=== PATIENT | female | born 1970 | race Caucasian/White ===

== ENCOUNTER 2016-06-22 23:30 | Emergency (ER) | payer OTHER ==
[~2016-06-22] VITALS: Ht 167.6 cm; Wt 70.3 kg
[2016-06-22] MEDS ORDERED: NKM (23:46)
[2016-06-22 23:52] VITALS: BP 121/81
[2016-06-23] MEDS ORDERED: Albuterol ud Inhalation HHN ONE (00:15)
--- NOTE | 2016-06-23 00:16 | Emergency Room Report ---
History of Present Illness General Chief Complaint: Dyspnea/Respdistress Source: Patient Present Illness HPI 45 YO F with progressive chest tightness, SOB, wheezing tonight. Went to PMD earlier for 4 days sore throat, rhinorrhea, non productive cough. Smokes MJ occasionally. Denies history of asthma, COPD, CHF, other med problems. Was given Tessalon pearles and Zpack, took first dose today. Allergies: Uncoded Allergies: contrast dye (Allergy, Unknown, 06/22/16) opiates (Allergy, Unknown, 06/22/16) Patient History Past Medical History: none Past Surgical History: none Pertinent Family History: none Social History: Reports: drug use Now: No Immunizations: UTD Reviewed Nursing Documentation: PMH: Agreed, PSxH: Agreed Nursing Documentation-PMH Hx Gastrointestinal Problems: Yes - left nephrectomy ,Jan 2016 Review of Systems All Other Systems: negative except mentioned in HPI Physical Exam Vital Signs Date Time Temp Pulse Resp B/P Pulse Ox O2 Delivery O2 Flow Rate FiO2 06/22/16 23:37 97.5 81 18 121/81 96 Room Air Sp02 EP Interpretation: reviewed, normal General Appearance: normal inspection, well appearing, alert, GCS 15, non-toxic , mild distress Head: normocephalic, atraumatic Eyes: bilateral eye EOMI, bilateral eye PERRL ENT: normal ENT inspection, hearing grossly normal, normal voice Neck: normal inspection, full range of motion, supple, no bony tend Respiratory: normal inspection, no respiratory distress, no retraction, no accessory muscle use, speaking full sentences, wheezing Cardiovascular #1: regular rate, rhythm, no edema Gastrointestinal: normal inspection, normal bowel sounds, non tender, soft, no guarding, no hernia Genitourinary: no CVA tenderness Musculoskeletal: normal inspection, back normal, normal range of motion, Ana' s Sign negative Neurologic: normal inspection, alert, oriented x3, responsive, contour sander III-XII nml as tested, motor strength/tone normal, speech normal Psychiatric: normal inspection Skin: normal inspection Lymphatic: normal inspection Medical Decision Making Diagnostic Impression: Primary Impression: Acute bronchitis Qualified Codes: J20.9 - Acute bronchitis, unspecified Additional Impression: URI (upper respiratory infection) Qualified Codes: J06.9 - Acute upper respiratory infection, unspecified; B97.89 - Other viral agents as the cause of diseases classified elsewhere ER Course 45 YO F with URI symptoms. VSS. Afebrile Wheezing throught precordium but not tachypnic, tachycardic or hypoxic No obvious source of bacterial infection in oropharynx, ears, lungs, skin, abdomen on exam Well appearing CXR negative for PNA on ED review Improved with albuterol X2 here Advised continued Zpack given by PMD and ceciliadolores haineschetan Will Rx Albuterol inhaler and T#3 as needed for pain PMD followup DC home Understands to return for worsening symptoms - Use albuterol and T#3 as needed for cough - Follow up with your primary care doctor in 2-3 days Chest X-Ray Diagnostic Results EP Interpretation: Yes Findings: no consolidation, no effusion, no pneumothorax, no acute cardiopulmonary disease Number of Views: 1 Last Vital Signs Date Time Temp Pulse Resp B/P Pulse Ox O2 Delivery O2 Flow Rate FiO2 06/22/16 23:53 81 18 Room Air 06/22/16 23:52 97.5 121/81 96 Status: improved Disposition: HOME, SELF-CARE Scripts Acetaminophen With Codeine (T#3) (TYLENOL #3 TAB*) Y Tab 1 TAB ORAL Q8H Y for For Cough, #20 TAB Prov: TAMEKA HERRON M.D. 06/23/16 Albuterol Sulfate (VENTOLIN HFA) 18 Gm Hfa.aer.ad 2 PUFFS INH EVERY 6 HOURS, #18 GM 0 Refills Prov: TAMEKA HERRON M.D. 06/23/16 TAMEKA HERRON M.D. Jun 23, 2016 00:16
[2016-06-23] MEDS ORDERED: ACETAMINOPHEN-1 EAC1 ORAL (00:18)
[2016-06-23] MEDS ORDERED: VENTOLIN HFA18 GM INH (00:18)
[2016-06-23 00:50] VITALS: BP 128/83
[2016-06-23 00:51] VITALS: BP 128/83
--- NOTE | 2016-06-23 10:56 | Diagnostic Imaging Report ---
Indication: SOB Technique: One view of the chest Comparison: none Findings: Lungs and pleural spaces are clear. Heart size is normal. Impression: No acute process
== END 2016-06-23 00:53 | disposition home or self-care (01) ==
LOC: EMR 23:59
DX: J20.9 Acute bronchitis, unspecified (principal); J06.9 Acute upper respiratory infection, unspecified; Z88.8 Allergy status to other drugs, medicaments and biological substances; Z91.041 Radiographic dye allergy status
CPT/HCPCS: 71010; 94640; 94664; 99284

== ENCOUNTER 2016-07-20 06:37 | Emergency (ER) | payer OTHER ==
[~2016-07-20] VITALS: Ht 167.6 cm; Wt 70.3 kg
[~2016-07-20 06:37] MED LIST: ACETAMINOPHEN-1 EAC1 ORAL; NKM; VENTOLIN HFA18 GM INH
[2016-07-20 06:45] VITALS: BP 120/78
[2016-07-20] MEDS: PredniSONE 20mg tab ORAL ONE ×2 (06:53→06:56)
[2016-07-20] MEDS ORDERED: Albuterol ud Inhalation HHN ONE (07:00)
[2016-07-20] MEDS ORDERED: VENTOLIN HFA18 GM INH (07:05)
[2016-07-20] MEDS ORDERED: PREDNISONE20 MG ORAL (07:16)
--- NOTE | 2016-07-20 07:30 | Emergency Room Report ---
History of Present Illness General Chief Complaint: Dyspnea/Respdistress Source: Patient Present Illness HPI 45 YOF with known mild asthma non-smoker p/w chest tightness since last night after arriving back in [place]. States "the rain and change of weather" caused mild exacerbation. Accidentally lost albuterol inhaler on the plane. Denies SOB, fever/chills, cough, URI symptoms. Allergies: Uncoded Allergies: contrast dye (Allergy, Unknown, 06/22/16) opiates (Allergy, Unknown, 06/22/16) Patient History Past Medical History: asthma Past Surgical History: none Pertinent Family History: none Social History: Denies: alcohol use, drug use, smoking Last Menstrual Period: "last month" Now: No Immunizations: UTD Reviewed Nursing Documentation: PMH: Agreed, PSxH: Agreed Nursing Documentation-PMH Past Medical History: No History, Except For Hx Gastrointestinal Problems: Yes - left nephrectomy ,Jan 2016 Review of Systems All Other Systems: negative except mentioned in HPI Physical Exam Vital Signs Date Time Temp Pulse Resp B/P Pulse Ox O2 Delivery O2 Flow Rate FiO2 07/20/16 06:41 97.3 84 22 121/77 96 Room Air 07/20/16 06:55 21 Sp02 EP Interpretation: reviewed, normal General Appearance: normal inspection, well appearing, no apparent distress, alert, GCS 15, non-toxic Head: normocephalic, atraumatic Eyes: bilateral eye EOMI, bilateral eye PERRL ENT: normal ENT inspection, hearing grossly normal, normal voice Neck: normal inspection, full range of motion, supple, no bony tend Respiratory: normal inspection, lungs clear, normal breath sounds, no respiratory distress, no retraction, no accessory muscle use, speaking full sentences, wheezing Cardiovascular #1: regular rate, rhythm, no edema Gastrointestinal: normal inspection, normal bowel sounds, non tender, soft, no guarding, no hernia Genitourinary: no CVA tenderness Musculoskeletal: normal inspection, back normal, normal range of motion, Ana' s Sign negative Neurologic: normal inspection, alert, oriented x3, responsive, marketing manager III-XII nml as tested, motor strength/tone normal, speech normal Psychiatric: normal inspection, judgement/insight normal, mood/affect normal Skin: normal inspection, normal color, no rash Lymphatic: normal inspection Medical Decision Making Diagnostic Impression: Primary Impression: Asthma Qualified Codes: J45.21 - Mild intermittent asthma with (acute) exacerbation ER Course 45 YOF with mild asthma exacerbation. VSS. Afebrile. Mild wheezing resolved after 1 albuterol Refused prednisone here Lungs CTAB on serial exam Not hypoxic, tachypnic. Low suspicion for PNA Rx albuterol and short-course prednisone DC with PMD followup PRN Last Vital Signs Date Time Temp Pulse Resp B/P Pulse Ox O2 Delivery O2 Flow Rate FiO2 07/20/16 07:07 85 16 99 Room Air 21 07/20/16 06:45 97.3 120/78 Status: improved Disposition: HOME, SELF-CARE Condition: Improved Scripts Prednisone* (PREDNISONE*) 20 Mg Tablet 20 MG ORAL BID for 3 Days, #6 TAB Prov: TAMEKA HERRON M.D. 07/20/16 Albuterol Sulfate (VENTOLIN HFA) 18 Gm Hfa.aer.ad 2 PUFFS INH EVERY 6 HOURS for cough, congestion, #18 GM 0 Refills Prov: TAMEKA HERRON M.D. 07/20/16 Referrals: NOT CHOSEN IPA/,REFERRING (PCP) Patient Instructions: Asthma, Adult, [id number] TAMEKA HERRON M.D. Jul 20, 2016 07:30
[2016-07-20 07:39] VITALS: BP 120/78
== END 2016-07-20 07:39 | disposition home or self-care (01) ==
LOC: EMR 07:21
DX: J45.901 Unspecified asthma with (acute) exacerbation (principal)
CPT/HCPCS: 94640; 94664; 99284

== ENCOUNTER 2017-02-18 09:31 | Emergency (ER) | payer OTHER ==
[~2017-02-18] VITALS: Ht 167.6 cm; Wt 77.1 kg
[~2017-02-18 09:31] MED LIST changes: +PREDNISONE20 MG ORAL
[2017-02-18 09:38] VITALS: BP 117/74
[2017-02-18] MEDS ORDERED: Solu-MEDROL 125mg Inj IM ONE (09:45)
[2017-02-18] MEDS ORDERED: Tetracaine 0.5% Opth Soln RIGHT EYE ONE (09:45)
--- NOTE | 2017-02-18 09:46 | Emergency Room Report ---
History of Present Illness General Chief Complaint: Eye Problems Source: Patient Present Illness HPI Patient woke up this morning she has some minimal irritation to her right eye And after scratching the area She felt increased irritation Patient noticed some increased swelling had taken a Benadryl and presents for further eval patient states that she has cats and is sometimes mildly allergic but nothing like this has happened Denies any visual changes Denies any actual pain to the she is increased erythema around eye and increased tearing Denies any contact use Denies any trauma Denies any medication Allergies: Uncoded Allergies: contrast dye (Allergy, Unknown, 06/22/16) opiates (Allergy, Unknown, 06/22/16) Patient History Past Medical History: see triage record Pertinent Family History: none Reviewed Nursing Documentation: PMH: Agreed, PSxH: Agreed Nursing Documentation-PMH Hx Gastrointestinal Problems: Yes - left nephrectomy ,Jan 2016 Review of Systems All Other Systems: negative except mentioned in HPI Physical Exam Vital Signs Date Time Temp Pulse Resp B/P (MAP) Pulse Ox O2 Delivery O2 Flow Rate FiO2 02/18/17 09:34 97.3 84 20 117/74 99 Room Air Sp02 EP Interpretation: reviewed, normal General Appearance: well appearing, no apparent distress Head: normocephalic, atraumatic Eyes: right eye other - There is some erythema involving both upper and lower eyelid, the right eye itself appears mildly edematous, pupils reactive appropriately, no conjunctival erythema extraocular motor intact, stain does not reveal any lacerations or cuts, ENT: normal pharynx, no angioedema Neck: supple Respiratory: lungs clear Cardiovascular #1: regular rate, rhythm Musculoskeletal: normal inspection Neurologic: alert, oriented x3, responsive Skin: other - as above Lymphatic: no adenopathy Medical Decision Making Diagnostic Impression: Primary Impression: Allergic reaction Additional Impression: Allergic conjunctivitis ER Course Given the patient's history and presentation She presents be having a reaction Appears allergic in nature No obvious infectious pathology No other new medications the source is unclear Patient was treated symptomatically Has done better and at this time stable for followup closely if there is no improvement in the next day patient requires close ophthalmology followup Last Vital Signs Date Time Temp Pulse Resp B/P (MAP) Pulse Ox O2 Delivery O2 Flow Rate FiO2 02/18/17 09:34 97.3 84 20 117/74 99 Room Air Status: improved Disposition: HOME, SELF-CARE Condition: Improved Scripts Diphenhydramine Hcl* (BENADRYL*) 25 Mg Capsule 25 MG ORAL Q8HR Y for Itching for 7 Days, CAP Prov: NICKI HERNANDEZ D.O. 02/18/17 Ranitidine Hcl* (ZANTAC*) 150 Mg Tablet 150 MG ORAL TWICE A DAY, #30 TAB Prov: NICKI HERNANDEZ D.O. 02/18/17 Prednisone* (PREDNISONE*) 20 Mg Tablet 20 MG ORAL BID, #8 TAB Prov: NICKI HERNANDEZ D.O. 02/18/17 Gentamicin/Prednisol Ac (PRED-G 1% EYE DROPS) 5 Ml Drops.susp 2 DROP OP BID for 5 Days, ML Prov: NICKI HERNANDEZ D.O. 02/18/17 Additional Instructions: Patient is provided with the discharge instructions notified to follow up with primary doctor in the next 2-3 days otherwise return to the er with any worsening symptoms. Please note that this report is being documented using DRAGON technology. This can lead to erroneous entry secondary to incorrect interpretation by the dictating instrument. NICKI HERNANDEZ D.O. Feb 18, 2017 09:46
[2017-02-18] MEDS ORDERED: PREDNISONE20 MG ORAL (10:27)
[2017-02-18] MEDS ORDERED: RANITIDINE HCL150 MG ORAL (10:27)
[2017-02-18] MEDS ORDERED: BENADRYL25 MG ORAL (10:27)
[2017-02-18] MEDS ORDERED: PRED-G 1% EYE DR5 ML OP (10:27)
[2017-02-18 10:33] VITALS: BP 117/74
== END 2017-02-18 10:33 | disposition home or self-care (01) ==
LOC: EMR 10:00
DX: T78.40XA Allergy, unspecified, initial encounter (principal); X58.XXXA Exposure to other specified factors, initial encounter; H10.11 Acute atopic conjunctivitis, right eye; Z88.5 Allergy status to narcotic agent; Z91.041 Radiographic dye allergy status
CPT/HCPCS: 96372; 99284; J2930

== ENCOUNTER 2020-04-17 03:50 | Inpatient (IN) | payer BC, OTHER ==
[~2020-04-17] VITALS: Ht 165.1 cm; Wt 89.8 kg
[2020-04-17] VITALS (14 sets, daily range): BP systolic 99–129; BP diastolic 57–75
[~2020-04-17 03:50] MED LIST changes: +BENADRYL25 MG ORAL; +PRED-G 1% EYE DR5 ML OP; +RANITIDINE HCL150 MG ORAL
--- NOTE | 2020-04-17 04:11 | Emergency Room Report ---
History of Present Illness General Chief Complaint: Abdominal Pain Source: Patient (Teddy Skinner MD) Present Illness HPI Disclaimer: Please note that this report is being documented using DRAGON technology. This can lead to erroneous entry secondary to incorrect interpr etation by the dictating instrument. HPI: 49-year-old female with history of nephrectomy presents for evaluation of abdominal pain. Patient awoke with abdominal pain around the umbilicus earlier today notes worsening lower abdominal distention and pressure and pain. Started vomiting approximately an hour ago. Had a bowel movement this morning but now passing minimal gas. Reports nausea. Prior nephrectomy as she is an organ donor. States she had a problem with scar tissue in the abdomen in the past. Denies fever or chills. Denies eating any new foods. Denies alcohol or drug use. Denies flank pain. No exacerbating or relieving factors. 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 COVID-19 Screening: Negative COVID-19 COVID-19 Testing Source: [facility] (Teddy Skinner MD) Patient History Last Menstrual Period: n/a (Teddy Skinner MD) Nursing Documentation-PMH Past Medical History: No History, Except For Hx Gastrointestinal Problems: Yes - left nephrectomy ,Jan 2016 (Teddy Skinner MD) Review of Systems All Other Systems: negative except mentioned in HPI (Teddy Skinner MD) Physical Exam Vital Signs Date Time Temp Pulse Resp B/P (MAP) Pulse Ox O2 Delivery O2 Flow Rate FiO2 04/17/20 03:56 99.1 69 18 131/65 (87) 95 Room Air General: Awake and alert, appears uncomfortable. HEENT: NC/AT. EOMI. Cardiovascular: RRR. S1 and S2 normal. No murmur appreciated Resp: Normal work of breathing. No cough, wheezing or crackles appreciated Abdomen: Abdomen is soft. Obese abdomen. Lower abdominal distention. Tender around the umbilicus. No guarding. No tenderness in the right or left lower quadrants. No significant tenderness in the upper quadrants. Skin: Intact. No abrasions, laceration or rash over the exposed skin MSK: Normal tone and bulk. Moving all extremities. No obvious deformity. Neuro: Awake and alert. Mentating appropriately. (Teddy Skinner MD) Medical Decision Making Diagnostic Impression: Primary Impression: Abdominal pain Additional Impression: Appendicitis ER Course 49-year female presents for abdominal pain. Concern for obstruction, volvulus, gastritis, gastroenteritis, pancreatitis, cholecystitis, appendicitis, UTI, pyelonephritis among others. X-ray shows a nonspecific bowel gas pattern no obvious bowel obstruction or volvulus. There is a moderate stool burden consistent with constipation. Patient has had problems with constipation in the past and she was given Dulcolax in the ED. Labs show mild white count 13.8. Chemistry unremarkable. Lipase within normal limits. Continues to complain of abdominal pain. CT is pending. Patient signed out to oncoming provider. Laboratory Tests Test 04/17/20 04:15 04/17/20 06:30 04/17/20 07:40 04/18/20 05:05 White Blood Count 13.8 K/UL (4.8-10.8) H 9.5 K/UL (4.8-10.8) Red Blood Count 4.09 M/UL (4.20-5.40) L 3.59 M/UL (4.20-5.40) L Hemoglobin 13.0 G/DL (12.0-16.0) 11.1 G/DL (12.0-16.0) L Hematocrit 34.2 % (37.0-47.0) L 31.9 % (37.0-47.0) L Mean Corpuscular Volume 84 FL (80-99) 89 FL (80-99) Mean Corpuscular Hemoglobin 31.7 PG (27.0-31.0) H 31.0 PG (27.0-31.0) Mean Corpuscular Hemoglobin Concent 37.9 G/DL (32.0-36.0) H 34.8 G/DL (32.0-36.0) Red Cell Distribution Width 13.9 % (11.6-14.8) 13.2 % (11.6-14.8) Platelet Count 292 K/UL (150-450) 206 K/UL (150-450) Mean Platelet Volume 5.6 FL (6.5-10.1) L 5.5 FL (6.5-10.1) L Neutrophils (%) (Auto) % (45.0-75.0) 73.8 % (45.0-75.0) Lymphocytes (%) (Auto) % (20.0-45.0) 19.6 % (20.0-45.0) L Monocytes (%) (Auto) % (1.0-10.0) 5.7 % (1.0-10.0) Eosinophils (%) (Auto) % (0.0-3.0) 0.2 % (0.0-3.0) Basophils (%) (Auto) % (0.0-2.0) 0.7 % (0.0-2.0) Sodium Level 135 MMOL/L (136-145) L 139 MMOL/L (136-145) Potassium Level 3.7 MMOL/L (3.5-5.1) 3.5 MMOL/L (3.5-5.1) Chloride Level 100 MMOL/L (98-107) 104 MMOL/L (98-107) Carbon Dioxide Level 28 MMOL/L (21-32) 30 MMOL/L (21-32) Anion Gap 7 mmol/L (5-15) 5 mmol/L (5-15) Blood Urea Nitrogen 14 mg/dL (7-18) 10 mg/dL (7-18) Creatinine 1.1 MG/DL (0.55-1.30) 1.1 MG/DL (0.55-1.30) Estimated Glomerular Filtration Rate 52.8 mL/min (>60) 52.8 mL/min (>60) Glucose Level 134 MG/DL (74-106) H 116 MG/DL (74-106) H Calcium Level 8.8 MG/DL (8.5-10.1) 7.8 MG/DL (8.5-10.1) L Total Bilirubin 0.4 MG/DL (0.2-1.0) Aspartate Amino Transferase (AST) 17 U/L (15-37) Alanine Aminotransferase (ALT) 25 U/L (12-78) Alkaline Phosphatase 78 U/L (46-116) Total Protein 7.1 G/DL (6.4-8.2) Albumin 3.9 G/DL (3.4-5.0) Globulin 3.2 g/dL Albumin/Globulin Ratio 1.2 (1.0-2.7) Lipase 110 U/L (73-393) Urine Color Pale yellow Urine Appearance Clear Urine pH 8 (4.5-8.0) Urine Specific [place] 1.010 (1.005-1.035) Urine Protein Negative (NEGATIVE) Urine Glucose (UA) Negative (NEGATIVE) Urine Ketones Negative (NEGATIVE) Urine Blood Negative (NEGATIVE) Urine Nitrite Negative (NEGATIVE) Urine Bilirubin Negative (NEGATIVE) Urine Urobilinogen Normal MG/DL (0.0-1.0) Urine Leukocyte Esterase Negative (NEGATIVE) Urine HCG, Qualitative Negative (NEGATIVE) Activated Partial Thromboplast Time 28 SEC (23-33) Microbiology Date/Time Source Procedure Growth Status 04/17/20 07:57 Nasopharynx SARS-CoV-2 RdRp Gene Assay - Final Complete (Teddy Skinner MD) ER Course Patient was dorsally by Dr. Skinner. See Dr. Skinner's notes for full history and physical. Patient presented with abdominal pain which began yesterday. Gradually worsening over time. Pain is localized in the periumbilical region. CT imaging was performed. A CT read by radiology showed 12 - appendix with appendicolith as well as previous nephrectomy see radiology report for full details. Dr. Nunez was contacted for surgical consult. Dr. Negrito Martinez was contacted for inpatient management. Patient was given Zosyn as well as morphine. Patient will be admitted to hospital for management of appendicitis. Labs Test 04/17/20 04:15 04/17/20 06:30 White Blood Count 13.8 K/UL (4.8-10.8) Red Blood Count 4.09 M/UL (4.20-5.40) Hemoglobin 13.0 G/DL (12.0-16.0) Hematocrit 34.2 % (37.0-47.0) Mean Corpuscular Volume 84 FL (80-99) Mean Corpuscular Hemoglobin 31.7 PG (27.0-31.0) Mean Corpuscular Hemoglobin Concent 37.9 G/DL (32.0-36.0) Red Cell Distribution Width 13.9 % (11.6-14.8) Platelet Count 292 K/UL (150-450) Mean Platelet Volume 5.6 FL (6.5-10.1) Neutrophils (%) (Auto) % (45.0-75.0) Lymphocytes (%) (Auto) % (20.0-45.0) Monocytes (%) (Auto) % (1.0-10.0) Eosinophils (%) (Auto) % (0.0-3.0) Basophils (%) (Auto) % (0.0-2.0) Sodium Level 135 MMOL/L (136-145) Potassium Level 3.7 MMOL/L (3.5-5.1) Chloride Level 100 MMOL/L (98-107) Carbon Dioxide Level 28 MMOL/L (21-32) Anion Gap 7 mmol/L (5-15) Blood Urea Nitrogen 14 mg/dL (7-18) Creatinine 1.1 MG/DL (0.55-1.30) Estimat Glomerular Filtration Rate 52.8 mL/min (>60) Glucose Level 134 MG/DL (74-106) Calcium Level 8.8 MG/DL (8.5-10.1) Total Bilirubin 0.4 MG/DL (0.2-1.0) Aspartate Amino Transf (AST/SGOT) 17 U/L (15-37) Alanine Aminotransferase (ALT/SGPT) 25 U/L (12-78) Alkaline Phosphatase 78 U/L (46-116) Total Protein 7.1 G/DL (6.4-8.2) Albumin 3.9 G/DL (3.4-5.0) Globulin 3.2 g/dL Albumin/Globulin Ratio 1.2 (1.0-2.7) Lipase 110 U/L (73-393) Urine Color Pale yellow Urine Appearance Clear Urine pH 8 (4.5-8.0) Urine Specific [place] 1.010 (1.005-1.035) Urine Protein Negative (NEGATIVE) Urine Glucose (UA) Negative (NEGATIVE) Urine Ketones Negative (NEGATIVE) Urine Blood Negative (NEGATIVE) Urine Nitrite Negative (NEGATIVE) Urine Bilirubin Negative (NEGATIVE) Urine Urobilinogen Normal MG/DL (0.0-1.0) Urine Leukocyte Esterase Negative (NEGATIVE) (Jeremy Ramirez MD) Other X-Ray Diagnostic Results Other X-Ray Diagnostic Results : X-Ray ordered: Abdomen # of Views/Limited Vs Complete: 1 View Indication: Pain EP Interpretation: Yes Interpretation: nonspecific bowel gas, no sbo, other - Moderate stool in colon Impression: Other - Moderate stool burden Electronically Signed by: Electronically signed by Dr. Teddy Skinner MD (Teddy Skinner MD) Last Vital Signs Date Time Temp Pulse Resp B/P (MAP) Pulse Ox O2 Delivery O2 Flow Rate FiO2 04/17/20 03:56 99.1 69 18 131/65 (87) 95 Room Air (Teddy Skinner MD) Status: improved (Jeremy Ramirez MD) Disposition: ADMITTED INPATIENT Condition: Stable Referrals: NON PHYSICIAN (PCP) Teddy Skinner MD Apr 17, 2020 04:11 Jeremy Ramirez MD Apr 17, 2020 07:57
[2020-04-17] MEDS ORDERED: Morphine Sulfate 4mg/ml Inj (IV USE ONLY) IVP ONE ×3 (04:15→11:30)
[2020-04-17 04:41] LABS: CALCIUM 8.8 MG/DL (8.5-10.1); CREATININE 1.1 MG/DL (0.55-1.30); POTASSIUM 3.7 MMOL/L (3.5-5.1)
[2020-04-17 04:45] LABS: ALBUMIN 3.9 G/DL (3.4-5.0); ALBUMIN/GLOBULIN RATIO 1.2 (1.0-2.7); BILIRUBIN,TOTAL 0.4 MG/DL (0.2-1.0)
[2020-04-17 04:46] LABS: HEMATOCRIT 34.2 % (37.0-47.0); MEAN CORPUSCULAR VOLUME 84 FL (80-99); PLATELET COUNT 292 K/UL (150-450); RED BLOOD COUNT 4.09 M/UL (4.20-5.40); RED CELL DISTRIBUTION WIDTH 13.9 % (11.6-14.8); WHITE BLOOD COUNT 13.8 K/UL (4.8-10.8)
[2020-04-17] MEDS ORDERED: Bisacodyl EC 5mg tab ORAL ONE (05:00)
[2020-04-17 06:39] LABS: APPEARANCE,URINE CLEAR; BILIRUBIN, URINE NEGATIVE (NEGATIVE); COLOR,URINE PALE YELLOW; GLUCOSE, URINE (UA) NEGATIVE (NEGATIVE); KETONES,URINE NEGATIVE (NEGATIVE); LEUKOCYTE ESTERASE ,URINE NEGATIVE (NEGATIVE); NITRITE,URINE NEGATIVE (NEGATIVE); PH,URINE 8 (4.5-8.0); PROTEIN,URINE NEGATIVE (NEGATIVE); UROBILINOGEN,URINE NORMAL MG/DL (0.0-1.0)
--- NOTE | 2020-04-17 07:40 | Diagnostic Imaging Report ---
EXAM: CT Abdomen and Pelvis Without Intravenous Contrast CLINICAL HISTORY: ABD PAIN TECHNIQUE: Axial computed tomography images of the abdomen and pelvis without intravenous contrast. CTDI is 15.20 mGy and DLP is 859.00 mGy-cm. One or more of the following dose reduction techniques were used: automated exposure control, adjustment of the mA and/or kV according to patient size, use of iterative reconstruction technique. COMPARISON: No relevant prior studies available. FINDINGS: Lung bases: Unremarkable. No mass. No consolidation. ABDOMEN: Liver: Unremarkable. Gallbladder and bile ducts: Unremarkable. No calcified stones. No ductal dilation. Pancreas: Unremarkable. No ductal dilation. Spleen: Unremarkable. No splenomegaly. Adrenals: Unremarkable. No mass. 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 Stomach and bowel: Unremarkable. No obstruction. No mucosal thickening. PELVIS: Appendix: Dilated, fluid-filled appendix with intraluminal appendicoliths, appendiceal wall thickening and periappendiceal infiltrative changes. Findings are consistent with acute appendicitis. The appendix measures up to 12 mm in diameter. No loculated lorena- appendiceal fluid collection. No extraluminal gas. Bladder: Unremarkable. No stones. Reproductive: No adnexal lesions. ABDOMEN and PELVIS: Intraperitoneal space: No free air. No significant fluid collection. Bones/joints: No acute fracture. No dislocation. Soft tissues: Unremarkable. Vasculature: Unremarkable. No abdominal aortic aneurysm. Lymph nodes: Unremarkable. No enlarged lymph nodes. IMPRESSION: Acute appendicitis. No evidence of appendiceal perforation. Status post left nephrectomy. <MYCVCSECTION> Communications: 04/17/20 07:37 Call Doctor Regarding Appendicitis, called Dr. Ramirez on 04/17 07:37 (-08:00)
[2020-04-17] MEDS ORDERED: Piperacillin/Tazobactam 3.375 GM in NS 110 ML IVPB ONE (08:00)
[2020-04-17] MEDS ORDERED: Piperacillin/Tazobactam 3.375 GM in NS 110 ML IVPB SCH (09:00)
[2020-04-17] MEDS ORDERED: Albuterol 90mcg Inhaler 8gm INH SCH ×2 (09:00→11:45)
[2020-04-17] MEDS ORDERED: Acetaminophen 500mg (ES) tab ORAL PRN (09:00)
[2020-04-17] MEDS ORDERED: HYDROmorphone 1mg/ml Carpuject ONE (09:38)
--- NOTE | 2020-04-17 10:00 | History and Physical Report ---
DATE OF ADMISSION: 04/17/2020 CHIEF COMPLAINT: Abdominal pain. HISTORY OF PRESENT ILLNESS: The patient is a 49-year-old female. She has a history of asthma, who presents with complaints of one day of progressive lower abdominal pain. On evaluation in the emergency room, she had a CAT scan of the abdomen that was consistent with acute appendicitis. She is now admitted for further evaluation and care. PAST MEDICAL HISTORY: None except for asthma. PAST SURGICAL HISTORY: Includes nephrectomy, bilateral shoulder surgery, knee surgery, and tonsillectomy. CURRENT MEDICATIONS: Include only an inhaler. ALLERGIES: Iodine, [place], and Vicodin. FAMILY HISTORY: Significant for history of lymphoma and lung cancer. SOCIAL HISTORY: The patient drinks socially. She uses marijuana. No other drugs. No tobacco. REVIEW OF SYSTEMS: Negative except for abdominal pain, some nausea and vomiting. PHYSICAL EXAMINATION: VITAL SIGNS: Temperature 98.8, pulse 64, respirations 19, blood pressure 120/79. GENERAL: The patient is well developed, in no apparent distress. HEART: Regular rate and rhythm. LUNGS: Clear. ABDOMEN: Soft. Diffusely tender with normoactive bowel sounds. EXTREMITIES: No clubbing, cyanosis, or edema. LABORATORY DATA: White count 14, hemoglobin 13, platelet count 292,000. Sodium was 135, potassium 3.7, glucose 134. Urine was clear. CT scan of the abdomen showed a dilated fluid-filled appendix with thickening and infiltrative changes consistent with acute appendicitis. ASSESSMENT: This is a 49-year-old female, who presents with complaints of abdominal pain secondary to appendicitis. PLAN: 1. Admit to medical-surgical bed. 2. IV hydration. 3. NPO. 4. IV pain medications. 5. IV antibiotics. 6. Surgical consultation is currently pending. The patient is stable for surgery. Perioperative risk is average for her age and sex. Negrito Martinez M.D. DR: SUDEEP JOB#: [id number] CC:
[2020-04-17] MEDS: HYDROmorphone 1mg/ml Carpuject IVP PRN (10:03)
[2020-04-17] MEDS ORDERED: DiphenhydrAMINE 50mg/ml Inj IVP ONE (11:30)
[2020-04-17] MEDS ORDERED: Lidocaine 1%/ 10mg/ml/EPI 0.01mg/ml 20ml INJ ONE (12:18)
--- NOTE | 2020-04-17 12:25 | Consultation ---
History of Present Illness General Date patient seen: Apr 17, 2020 Reason for Hospitalization: Abdominal Pain Present Illness HPI 49F history of prior lap kidney donor presented with acute onset 1 day worsening lower abdominal pain. +n. no emesis. pain 10/10 without radiation. abnormal labs. CT consistent with acute appy. surgery called to evaluate. patient seen in ED. chart reviewed, history taken and patient examined. Allergies: Uncoded Allergies: contrast dye (Allergy, Unknown, 06/22/16) opiates (Allergy, Unknown, 06/22/16) COVID-19 Screening Contact w/high risk pt: No Experienced COVID-19 symptoms?: No Coronavirus symptoms experienc: Chills, Nausea/Vomiting Medication History Scheduled Albuterol Sulfate (Ventolin Hfa), 2 PUFFS INH EVERY 6 HOURS Albuterol Sulfate (Ventolin Hfa), 2 PUFFS INH EVERY 6 HOURS Gentamicin/Prednisol Ac (Pred-G 1% Eye Drops), 2 DROP OP BID No Known Medications* (NKM - No Known Medications*), 0 ., (Reported) Prednisone* (Prednisone*), 20 MG ORAL BID Prednisone* (Prednisone*), 20 MG ORAL BID Ranitidine Hcl* (Zantac), 150 MG ORAL TWICE A DAY Scheduled PRN Acetaminophen With Codeine (T#3) (Tylenol #3 Tab*), 1 TAB ORAL Q8H PRN for For Cough Diphenhydramine Hcl* (Benadryl*), 25 MG ORAL Q8HR PRN for Itching Patient History History Provided By: Patient Healthcare decision maker Resuscitation status Advanced Directive on File Past Medical/Surgical History Past Medical/Surgical History: (1) Asthma (2) Appendicitis (3) Abdominal pain Review of Systems Review of Symptoms General ROS: no weight loss or fever Psychological ROS: no depression or mood changes, no memory loss Ophthalmic ROS: no visual changes or eye irritation ENT ROS: no nasal congestion, hearing loss, dizziness Allergy and Immunology ROS: no allergic symptoms or urticaria Hematological and Lymphatic ROS: no swollen glands, unusual bleeding or bruising Endocrine ROS: no polyuria, polydipsia, weight changes, temperature intolerance Respiratory ROS: no cough, shortness of breath, or wheezing Cardiovascular ROS: no chest pain or dyspnea on exertion Gastrointestinal ROS: ++ abdominal pain, --bright red blood in stool. Musculoskeletal ROS: no myalgias or arthralgias Neurological ROS: no TIA or stroke symptoms Dermatological ROS: no new or changing skin lesions, rashes or pruritis Physical Exam Physical Exam General appearance: alert, cooperative, no distress, appears stated age Head: Normocephalic, without obvious abnormality, atraumatic Eyes: conjunctivae/corneas clear. PERRL, EOM's intact. Fundi benign Throat: Lips, mucosa, and tongue normal. Teeth and gums normal Neck: supple, symmetrical, trachea midline, no adenopathy, thyroid: not enlarged, symmetric, no tenderness/mass/nodules, no carotid bruit and no JVD Lungs: clear to auscultation bilaterally Heart: regular rate and rhythm, S1, S2 normal, no murmur, click, rub or gallop Abdomen: soft, RLQ-tender. Bowel sounds normal. No masses, no organomegaly Extremities: extremities normal, atraumatic, no cyanosis or edema Pulses: 2+ and symmetric Skin: Skin color, texture, turgor normal. No rashes or lesions Neurologic: Grossly normal Last 24 Hour Vital Signs Date Time Temp Pulse Resp B/P (MAP) Pulse Ox O2 Delivery O2 Flow Rate FiO2 04/17/20 11:40 98.8 04/17/20 11:40 98.8 70 18 120/67 98 Room Air 04/17/20 10:33 98.8 04/17/20 10:04 98.8 65 17 123/69 99 Room Air 04/17/20 08:32 98.8 04/17/20 07:45 98.8 64 19 120/72 97 Room Air 04/17/20 04:30 98.8 69 18 129/75 96 Room Air 04/17/20 04:28 72 18 Room Air 04/17/20 03:56 99.1 69 18 131/65 (87) 95 Room Air Laboratory Tests Test 04/17/20 04:15 04/17/20 06:30 04/17/20 07:40 White Blood Count 13.8 K/UL (4.8-10.8) H Red Blood Count 4.09 M/UL (4.20-5.40) L Hemoglobin 13.0 G/DL (12.0-16.0) Hematocrit 34.2 % (37.0-47.0) L Mean Corpuscular Volume 84 FL (80-99) Mean Corpuscular Hemoglobin 31.7 PG (27.0-31.0) H Mean Corpuscular Hemoglobin Concent 37.9 G/DL (32.0-36.0) H Red Cell Distribution Width 13.9 % (11.6-14.8) Platelet Count 292 K/UL (150-450) Mean Platelet Volume 5.6 FL (6.5-10.1) L Neutrophils (%) (Auto) % (45.0-75.0) Lymphocytes (%) (Auto) % (20.0-45.0) Monocytes (%) (Auto) % (1.0-10.0) Eosinophils (%) (Auto) % (0.0-3.0) Basophils (%) (Auto) % (0.0-2.0) Sodium Level 135 MMOL/L (136-145) L Potassium Level 3.7 MMOL/L (3.5-5.1) Chloride Level 100 MMOL/L (98-107) Carbon Dioxide Level 28 MMOL/L (21-32) Anion Gap 7 mmol/L (5-15) Blood Urea Nitrogen 14 mg/dL (7-18) Creatinine 1.1 MG/DL (0.55-1.30) Estimat Glomerular Filtration Rate 52.8 mL/min (>60) Glucose Level 134 MG/DL (74-106) H Calcium Level 8.8 MG/DL (8.5-10.1) Total Bilirubin 0.4 MG/DL (0.2-1.0) Aspartate Amino Transf (AST/SGOT) 17 U/L (15-37) Alanine Aminotransferase (ALT/SGPT) 25 U/L (12-78) Alkaline Phosphatase 78 U/L (46-116) Total Protein 7.1 G/DL (6.4-8.2) Albumin 3.9 G/DL (3.4-5.0) Globulin 3.2 g/dL Albumin/Globulin Ratio 1.2 (1.0-2.7) Lipase 110 U/L (73-393) Urine Color Pale yellow Urine Appearance Clear Urine pH 8 (4.5-8.0) Urine Specific [place] 1.010 (1.005-1.035) Urine Protein Negative (NEGATIVE) Urine Glucose (UA) Negative (NEGATIVE) Urine Ketones Negative (NEGATIVE) Urine Blood Negative (NEGATIVE) Urine Nitrite Negative (NEGATIVE) Urine Bilirubin Negative (NEGATIVE) Urine Urobilinogen Normal MG/DL (0.0-1.0) Urine Leukocyte Esterase Negative (NEGATIVE) Urine HCG, Qualitative Negative (NEGATIVE) Activated Partial Thromboplast Time 28 SEC (23-33) Microbiology Date/Time Source Procedure Growth Status 04/17/20 07:57 Nasopharynx SARS-CoV-2 RdRp Gene Assay - Final Complete Height (Feet): 5 Height (Inches): 5.00 Weight (Pounds): 198 Assessment/Plan Problem List: (1) Appendicitis Assessment & Plan: 49F acute appy afebrile, HD stable leukocytosis CT with acute appy exam with RLQ tenderness npo iv fluids iv abx consent to or for lap vs open appy ABDOMEN: Liver: Unremarkable. Gallbladder and bile ducts: Unremarkable. No calcified stones. No ductal dilation. Pancreas: Unremarkable. No ductal dilation. Spleen: Unremarkable. No splenomegaly. Adrenals: Unremarkable. No mass. 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 Stomach and bowel: Unremarkable. No obstruction. No mucosal thickening. PELVIS: Appendix: Dilated, fluid-filled appendix with intraluminal appendicoliths, appendiceal wall thickening and periappendiceal infiltrative changes. Findings are consistent with acute appendicitis. The appendix measures up to 12 mm in diameter. No loculated lorena- appendiceal fluid collection. No extraluminal gas. Bladder: Unremarkable. No stones. Reproductive: No adnexal lesions. ABDOMEN and PELVIS: Intraperitoneal space: No free air. No significant fluid collection. Bones/joints: No acute fracture. No dislocation. Soft tissues: Unremarkable. Vasculature: Unremarkable. No abdominal aortic aneurysm. Lymph nodes: Unremarkable. No enlarged lymph nodes. IMPRESSION: Acute appendicitis. No evidence of appendiceal perforation. ICD Codes: K37 - Unspecified appendicitis SNOMED: 44024672 (2) Abdominal pain ICD Codes: R10.9 - Unspecified abdominal pain SNOMED: 94881895 (3) Asthma ICD Codes: J45.909 - Unspecified asthma, uncomplicated SNOMED: 554401839 Spencer Nunez Apr 17, 2020 12:25
--- NOTE | 2020-04-17 12:26 | Pre-Procedure Note/Attestation ---
Pre-Procedure Note/Attestation Complete Prior to Procedure Procedure Narrative: laparoscopic appendectomy Indications for Procedure Pre-Operative Diagnosis: acute appendicitis Attestation I attest that I discussed the nature of the procedure; its benefits; risks and complications; and alternatives (and the risks and benefits of such alternatives), prior to the procedure, with the patient (or the patient's legal sales representative raw fibers). I attest that, if there was a reasonable possibility of needing a blood transfusion, the patient (or the patient's legal sales representative raw fibers) was given the [facility] standardized written summary, pursuant to the [place] Blood Safety Act ([place] Health and Safety Code # 1645, as amended). I attest that I re-evaluated the patient just prior to the surgery and that there has been no change in the patient's H&P, except as documented below: Spencer Nunez Apr 17, 2020 12:26
[2020-04-17] MEDS ORDERED: fentaNYL 100 mcg/2 mL IV ONE ×2 (12:29→13:31)
[2020-04-17] MEDS ORDERED: Midazolam 2mg/2ml Inj ONE (12:29)
[2020-04-17] MEDS ORDERED: Rocuronium Bromide 50mg/5ml Inj IV ONE (12:33)
[2020-04-17] MEDS ORDERED: Lidocaine 1% MPF 10mg/ml 5ml ONE (12:37)
[2020-04-17] MEDS ORDERED: Metoclopramide 10mg/2ml Inj ONE (12:37)
[2020-04-17] MEDS ORDERED: NS Irrig 1000ml IRRIG ONE (13:00)
[2020-04-17] MEDS ORDERED: Neostigmine 1mg/ml 10ml Inj ONE (13:25)
[2020-04-17] MEDS ORDERED: Glycopyrrolate 0.2mg/ml 1ml Vial ONE (13:25)
[2020-04-17] MEDS ORDERED: Ketorolac 30mg Inj ONE (13:26)
[2020-04-17] MEDS ORDERED: fentaNYL 100 mcg/2 mL IV PRN (13:45)
[2020-04-17] MEDS ORDERED: Metoclopramide 10mg/2ml Inj IVP PRN (13:45)
[2020-04-17] MEDS ORDERED: DiphenhydrAMINE 50mg/ml Inj IVP PRN (13:45)
--- NOTE | 2020-04-17 13:45 | Immediate Post-Op Evaluation ---
Immediate Post-Op Evalulation Immediate Post-Op Evalulation Procedure: Lap Appendectomy Date of Evaluation: Apr 17, 2020 Time of Evaluation: 13:43 IV Fluids: 500 Estimated Blood Loss: 5 Blood Pressure Systolic: 107 Blood Pressure Diastolic: 62 Pulse Rate: 89 Respiratory Rate: 14 O2 Sat by Pulse Oximetry: 99 Temperature (Fahrenheit): 99.1 Nausea: No Vomiting: No Complications none Patient Status: awake, reacts, patent Hydration Status: adequate Drug: ancef Given Within 1 Hr of Incision: Yes Time Given: 12:40 Ruth Shore CRNA Apr 17, 2020 13:45
--- NOTE | 2020-04-17 13:47 | Anethesia Preoperative Eval ---
Anesthesia Pre-op PMH/ROS General Date of Evaluation: Apr 17, 2020 Time of Evaluation: 12:30 Anesthesiologist: westley ASA Score: ASA 2 Mallampati Score Class I : Soft palate, uvula, fauces, pillars visible Class II: Soft palate, uvula, fauces visible Class III: Soft palate, base of uvula visible Class IV: Only hard plate visible Mallampati Classification: Class II Surgeon: Mayra Diagnosis: Appendicitis Surgical Procedure: Lap Appendectomy Anesthesia History: none Family History: no anesthesia problems Allergies: Uncoded Allergies: contrast dye (Allergy, Unknown, 06/22/16) opiates (Allergy, Unknown, 06/22/16) Medications: see eMAR Patient NPO?: Yes NPO Date: Apr 17, 2020 NPO Time: 00:01 Past Medical History Cardiovascular: Denies: HTN, CAD, [place], valve dz, arrhythmia, other Pulmonary: Reports: asthma; Denies: COPD, ARIANNE, other Gastrointestinal/Genitourinary: Reports: GERD Neurologic/Psychiatric: Reports: depression/anxiety; Denies: dementia, CVA, TIA, other Endocrine: Denies: DM, hypothyroidism, steroids, other Hematology/Immune: Denies: anemia, DVT, bleeding disorder, other Musculoskeletal/Integumentary: Denies: OA, RA, DJD, DDD, edema, other Other: obesity PSxH Narrative: nephrectomy Anesthesia Pre-op Phys. Exam Physician Exam Last Vital Signs Date Time Temp Pulse Resp B/P (MAP) Pulse Ox O2 Delivery O2 Flow Rate FiO2 04/17/20 11:40 98.8 04/17/20 11:40 70 18 120/67 98 Room Air Constitutional: NAD Neurologic: CN 2-12 intact Cardiovascular: RRR Respiratory: CTA Gastrointestinal: S/NT/ND Airway Exam Mallampati Classification 2 Mallampati Score: Class II MO: full ROM: full Dentures: no upper, no lower Anesthesia Pre-op A/P Labs Hematology Test 04/17/20 04:15 White Blood Count 13.8 K/UL (4.8-10.8) H Red Blood Count 4.09 M/UL (4.20-5.40) L Hemoglobin 13.0 G/DL (12.0-16.0) Hematocrit 34.2 % (37.0-47.0) L Mean Corpuscular Volume 84 FL (80-99) Mean Corpuscular Hemoglobin 31.7 PG (27.0-31.0) H Mean Corpuscular Hemoglobin Concent 37.9 G/DL (32.0-36.0) H Red Cell Distribution Width 13.9 % (11.6-14.8) Platelet Count 292 K/UL (150-450) Mean Platelet Volume 5.6 FL (6.5-10.1) L Neutrophils (%) (Auto) % (45.0-75.0) Lymphocytes (%) (Auto) % (20.0-45.0) Monocytes (%) (Auto) % (1.0-10.0) Eosinophils (%) (Auto) % (0.0-3.0) Basophils (%) (Auto) % (0.0-2.0) Coagulation Test 04/17/20 07:40 Activated Partial Thromboplast Time 28 SEC (23-33) Chemistry Test 04/17/20 04:15 Sodium Level 135 MMOL/L (136-145) L Potassium Level 3.7 MMOL/L (3.5-5.1) Chloride Level 100 MMOL/L (98-107) Carbon Dioxide Level 28 MMOL/L (21-32) Anion Gap 7 mmol/L (5-15) Blood Urea Nitrogen 14 mg/dL (7-18) Creatinine 1.1 MG/DL (0.55-1.30) Estimat Glomerular Filtration Rate 52.8 mL/min (>60) Glucose Level 134 MG/DL (74-106) H Calcium Level 8.8 MG/DL (8.5-10.1) Total Bilirubin 0.4 MG/DL (0.2-1.0) Aspartate Amino Transf (AST/SGOT) 17 U/L (15-37) Alanine Aminotransferase (ALT/SGPT) 25 U/L (12-78) Alkaline Phosphatase 78 U/L (46-116) Total Protein 7.1 G/DL (6.4-8.2) Albumin 3.9 G/DL (3.4-5.0) Globulin 3.2 g/dL Albumin/Globulin Ratio 1.2 (1.0-2.7) Lipase 110 U/L (73-393) Urine Test Test 04/17/20 06:30 Urine HCG, Qualitative Negative (NEGATIVE) Studies Pre-op Studies: EKG - sr Risk Assessment & Plan Plan: general Status Change Before Surgery: No Pre-Antibiotics Drug: ancef Given Within 1 Hr of Incision: Yes Time Given: 12:45 Ruth Shore CORE DRILL OPERATOR HELPER Apr 17, 2020 13:47
--- NOTE | 2020-04-17 13:54 | 48 Hour Post Anesthesia Eval ---
Post Anesthesia Evaluation Procedure: Lap Appendectomy Date of Evaluation: Apr 17, 2020 Time of Evaluation: 13:53 Blood Pressure Systolic: 123 0: 66 Pulse Rate: 79 Respiratory Rate: 14 Temperature (Fahrenheit): 98.9 O2 Sat by Pulse Oximetry: 100 Airway: patent Nausea: No Vomiting: No Hydration Status: adequate Cardiopulmonary Status: stable Mental Status/LOC: patient returned to baseline Post-Anesthesia Complications: none Follow-up care needed: N/A Ruth Shore CRNA Apr 17, 2020 13:53
--- NOTE | 2020-04-17 14:01 | Brief Operative Note ---
Immediate Post Operative Note Operative Note Pre-op Diagnosis: acute appendicitis Procedure: Laparoscopic appendectomy Post-op Diagnosis: same as pre-op Surgeon: Spencer Nunez MD Anesthesiologist: Ruth LONGO Anesthesia: general, local Specimen: yes Complications: none Condition: stable Fluids: See records Estimated Blood Loss: minimal Drains: none Implant(s) used?: No Spencer Nunez Apr 17, 2020 14:01
[2020-04-17] MEDS ORDERED: Morphine Sulfate 2mg/ml Inj(IV/IM USE ONLY) IVP PRN (14:15)
[2020-04-17] MEDS ORDERED: Morphine Sulfate 4mg/ml Inj (IV USE ONLY) IVP PRN (14:15)
--- NOTE | 2020-04-17 15:15 | Operative Note - Dictated ---
DATE OF OPERATION: 04/17/2020 PREOPERATIVE DIAGNOSIS: Acute appendicitis. POSTOPERATIVE DIAGNOSES: Acute appendicitis, extensive intra-abdominal adhesions. OPERATION PERFORMED: 1. Laparoscopic appendectomy. 2. Laparoscopic lysis of adhesions. ATTENDING SURGEON: Spencer Nunez M.D. TOMATO PULPER OPERATOR: None. ANESTHESIOLOGIST: Ruth Shore C.R.N.A. ANESTHESIA: INSURANCE VERIFICATION SPECIALIST plus local. ESTIMATED BLOOD LOSS: Minimal. IV FLUIDS: Please see anesthesia records. COMPLICATIONS: None. DRAINS: None. SPONGE AND NEEDLE COUNT: Correct x2. WOUND CLASSIFICATION: Class 3. SPECIMEN: Appendix. ANTIBIOTICS: The patient is on IV antibiotics for acute active inflammatory process. INDICATIONS FOR THE PROCEDURE: This is a very pleasant 49-year-old female with history of laparoscopic assisted left donor nephrectomy, live, where she donated a kidney years ago. She has been doing well, now presents with acute abdominal pain, identified in the emergency department to have acute appendicitis, leukocytosis, CT consistent with acute uncomplicated appendicitis, and on examination focal right lower quadrant tenderness. Surgery indicated and recommended. Risks, benefits, alternatives discussed in detail. The patient expressed understanding. Consent is obtained. The patient is seen in the emergency department and scheduled for operative intervention immediately. OPERATIVE NOTE: The patient was taken to the operating room and placed on the operating table in the supine position with left arm tucked. All bony prominences are well padded. SCDs placed. Preoperative time-out taken to identify the patient, procedure, operative staff, and surgical staff. General anesthesia was induced. The patient was intubated. The abdomen was clipped, prepped, and draped in the standard surgical fashion. No Robb was inserted given the patient voided prior to entering the operating room. Local anesthetic was infiltrated throughout the procedure for the patient's comfort. An infraumbilical incision was made and carried down through subcutaneous tissue and fascia. The fascia was elevated and incised. Entry into the abdomen was obtained using open Blue technique without complication. A 12 mm Blue trocar was inserted. The abdomen was insufflated 12-15 mmHg. The patient tolerated insufflation well. Laparoscope was inserted and abdomen inspected. There were a fair amount of adhesions, omental and other adhesions formed within the abdomen. Secondary trocars were placed under direct visualization, beginning with a suprapubic 5 mm and a left lower quadrant 12 mm. Laparoscopic graspers were used and instruments were used and blunt dissection with scissors and electrocautery as necessary were used to perform lysis of adhesions of the omentum and some of the peritoneal lining to the bowel in the pelvis and the right lower quadrant. At this point, the appendix was identified retrocecal. The appendix was mobilized and the base identified and noted to be sufficient for staple line. The confluence of the tenia was identified where the base was noted. A window was made between the base of the appendix and mesoappendix. A laparoscopic linear stapler was used and the appendix was divided. The mesoappendix was then mobilized and cleared out and the mesoappendix divided using a vascular load laparoscopic linear stapler. Further hemostasis required via laparoscopic clips. The 10 mm laparoscopic clips were used and hemostasis obtained at the mesoappendix and the base of the staple line for appropriate hemostasis. The appendix was placed in endoscopic retrieval bag and removed from the abdomen using left lower quadrant port site. The right lower quadrant pelvis was irrigated and suctioned clean. Secondary trocars were removed under direct visualization, followed by umbilical trocar site. The abdomen was deflated. The umbilical trocar site, left lower quadrant port site fascia was reapproximated using [id number] 0 Vicryl sutures. Skin incisions were reapproximated using 4-0 Monocryl subcuticular interrupted sutures. Skin glue and Steri-Strips were applied. The patient tolerated the procedure well, extubated, and taken to postanesthetic care unit in a stable condition. Spencer Nunez M.D. DR: ANNA MARIE JOB#: [id number] CC:
[2020-04-17] MEDS: D5NS 1,000 ML IV SCH ×2 (16:57→22:39)
--- NOTE | 2020-04-17 17:51 | Diagnostic Imaging Report ---
Indication: Abdominal distention, abdominal pain for 2 days Technique: Supine view of the abdomen Comparison: none Findings: Unremarkable bowel gas pattern. No masses or unusual calcifications. There are surgical clips in the epigastric region Impression: No acute process
[2020-04-17] MEDS: Docusate 100mg cap ORAL SCH (19:00)
[2020-04-17] MEDS: Albuterol ud Inhalation HHN SCH (19:00)
[2020-04-17] MEDS: cefOXitin Sod 2 GM in D5W 110 ML IV SCH (19:00)
[2020-04-17] MEDS: Morphine Sulfate 2mg/ml Inj(IV/IM USE ONLY) IVP PRN (22:31)
[2020-04-18] MEDS: cefOXitin Sod 2 GM in D5W 110 ML IV SCH ×2 (00:11→05:42)
[2020-04-18 00:19] VITALS: BP 117/73
[2020-04-18] MEDS: Albuterol ud Inhalation HHN SCH ×4 (00:57→19:35)
[2020-04-18 04:00] VITALS: BP 115/69
[2020-04-18 05:55] LABS: BASOPHILS % (AUTO) 0.7 % (0.0-2.0); CALCIUM 7.8 MG/DL (8.5-10.1); CREATININE 1.1 MG/DL (0.55-1.30); EOSINOPHILS % (AUTO) 0.2 % (0.0-3.0); HEMATOCRIT 31.9 % (37.0-47.0); HEMOGLOBIN 11.1 G/DL (12.0-16.0); LYMPHOCYTES % (AUTO) 19.6 % (20.0-45.0); MEAN CORPUSCULAR VOLUME 89 FL (80-99); MONOCYTES % (AUTO) 5.7 % (1.0-10.0); NEUTROPHILS % (AUTO) 73.8 % (45.0-75.0); PLATELET COUNT 206 K/UL (150-450); POTASSIUM 3.5 MMOL/L (3.5-5.1); RED BLOOD COUNT 3.59 M/UL (4.20-5.40); RED CELL DISTRIBUTION WIDTH 13.2 % (11.6-14.8); WHITE BLOOD COUNT 9.5 K/UL (4.8-10.8)
[2020-04-18 08:00] VITALS: BP 119/80
--- NOTE | 2020-04-18 08:20 | General Progress Note ---
Subjective ROS Limited/Unobtainable: No Constitutional: Reports: no symptoms HEENT: Reports: no symptoms Cardiovascular: Reports: no symptoms Respiratory: Reports: no symptoms Gastrointestinal/Abdominal: Reports: abdominal pain Genitourinary: Reports: no symptoms Neurologic/Psychiatric: Reports: no symptoms Endocrine: Reports: no symptoms Hematologic/Lymphatic: Reports: no symptoms Allergies: Uncoded Allergies: contrast dye (Allergy, Unknown, 06/22/16) opiates (Allergy, Unknown, 06/22/16) All Systems: reviewed and negative except above Subjective c.o headaches. tolerated lap appy. no complaints except post op pain Objective Last 24 Hour Vital Signs Date Time Temp Pulse Resp B/P (MAP) Pulse Ox O2 Delivery O2 Flow Rate FiO2 04/18/20 08:00 98.6 90 16 119/80 (93) 97 04/18/20 04:00 98.0 80 16 115/69 (84) 97 04/18/20 00:57 97 20 100 Room Air 21 95 18 96 04/18/20 00:19 98.6 85 16 117/73 (88) 95 04/17/20 21:00 Room Air 04/17/20 20:00 98.2 85 16 114/64 (81) 97 04/17/20 16:00 98.3 91 18 108/65 (79) 97 04/17/20 15:44 Nasal Cannula 3.0 04/17/20 15:30 98.3 91 18 99/57 (71) 94 04/17/20 15:00 98.3 85 18 108/57 (74) 94 04/17/20 14:28 98.2 85 17 107/65 100 Nasal Cannula 3 04/17/20 14:20 86 18 111/62 100 Nasal Cannula 3 04/17/20 14:10 88 17 118/64 100 Nasal Cannula 3 04/17/20 14:00 70 13 117/70 100 Simple Mask 6 04/17/20 13:53 79 14 100 04/17/20 13:50 75 14 119/62 100 Simple Mask 6 04/17/20 13:45 78 12 107/62 100 Simple Mask 6 04/17/20 13:45 89 14 99 04/17/20 13:38 99.1 83 13 109/69 100 Simple Mask 6 04/17/20 11:40 98.8 12/18/20 11:40 98.8 70 18 120/67 98 Room Air 04/17/20 10:33 98.8 04/17/20 10:04 98.8 65 17 123/69 99 Room Air 04/17/20 08:32 98.8 Intake and Output 04/17/20 04/18/20 19:00 07:00 Intake Total 900 ml 2050 ml Output Total 5 ml Balance 895 ml 2050 ml Intake Oral 1300 ml IV Total 900 ml 750 ml Output Estimated Blood Loss 5 ml # Voids 3 Laboratory Tests 04/18/20 05:05: White Blood Count 9.5, Red Blood Count 3.59L, Hemoglobin 11.1L, Hematocrit 31.9L , Mean Corpuscular Volume 89, Mean Corpuscular Hemoglobin 31.0, Mean Corpuscular Hemoglobin Concent 34.8, Red Cell Distribution Width 13.2, Platelet Count 206, Mean Platelet Volume 5.5L, Neutrophils (%) (Auto) 73.8, Lymphocytes (%) (Auto) 19.6L, Monocytes (%) (Auto) 5.7, Eosinophils (%) (Auto) 0.2, Basophils (%) (Auto) 0.7, Sodium Level 139, Potassium Level 3.5, Chloride Level 104, Carbon Dioxide Level 30, Anion Gap 5, Blood Urea Nitrogen 10, Creatinine 1.1, Estimat Glomerular Filtration Rate 52.8, Glucose Level 116H, Calcium Level 7.8L Height (Feet): 5 Height (Inches): 5.00 Weight (Pounds): 198 General Appearance: WD/WN Neck: normal inspection Cardiovascular: normal rate Respiratory/Chest: chest wall non-tender, lungs clear Abdomen: normal bowel sounds, non tender, soft, no organomegaly Edema: no edema noted Leg (L), no edema noted Leg (R) Neurologic: mens locker room attendant II-XII grossly normal Assessment/Plan Problem List: (1) Appendicitis ICD Codes: K37 - Unspecified appendicitis SNOMED: 15822923 (2) Abdominal pain ICD Codes: R10.9 - Unspecified abdominal pain SNOMED: 67729184 (3) Asthma ICD Codes: J45.909 - Unspecified asthma, uncomplicated SNOMED: 023742618 (4) appendicitis Status: stable Assessment/Plan: cont current rx ivf iv abx imitrex x 1 Negrito Martinez MD Apr 18, 2020 08:20
[2020-04-18] MEDS ORDERED: SUMAtriptan 6mg/0.5ml Inj SUBQ SCH (08:30)
[2020-04-18] MEDS: Morphine Sulfate 2mg/ml Inj(IV/IM USE ONLY) IVP PRN (09:06)
[2020-04-18] MEDS: Docusate 100mg cap ORAL SCH ×2 (09:06→18:56)
[2020-04-18] MEDS: Milk of Magnesia 30ml Ud ORAL PRN (11:11)
[2020-04-18] MEDS: D5NS 1,000 ML IV SCH ×2 (11:40→22:13)
[2020-04-18 12:00] VITALS: BP 130/78
[2020-04-18] MEDS: Piperacillin/Tazobactam 3.375 GM in NS 110 ML IVPB SCH ×2 (14:33→22:07)
[2020-04-18] MEDS: HYDROmorphone 1mg/ml Carpuject IVP PRN (15:31)
[2020-04-18] MEDS ORDERED: Fleet's Enema 133ml RECTAL SCH (15:45)
[2020-04-18 16:00] VITALS: BP 121/72
--- NOTE | 2020-04-18 18:17 | Surgery Progress Note ---
Surgery Progress Note Subjective Procedure Performed Laparoscopic appendectomy Additional Comments c/o headache states abd pain improved + emesis from headache constipated Objective Last 24 Hour Vital Signs Date Time Temp Pulse Resp B/P (MAP) Pulse Ox O2 Delivery O2 Flow Rate FiO2 04/18/20 16:00 98.8 86 16 121/72 (88) 98 04/18/20 13:53 100 18 100 Room Air 21 100 18 97 04/18/20 12:00 99.1 85 16 130/78 (95) 96 04/18/20 08:01 103 18 100 Room Air 21 99 18 98 04/18/20 08:00 98.6 90 16 119/80 (93) 97 04/18/20 04:00 98.0 80 16 115/69 (84) 97 04/18/20 00:57 97 20 100 Room Air 21 95 18 96 04/18/20 00:19 98.6 85 16 117/73 (88) 95 04/17/20 21:00 Room Air 04/17/20 20:00 98.2 85 16 114/64 (81) 97 I&O Intake and Output 04/17/20 04/18/20 19:00 07:00 Intake Total 900 ml 2050 ml Output Total 5 ml Balance 895 ml 2050 ml Intake Oral 1300 ml IV Total 900 ml 750 ml Output Estimated Blood Loss 5 ml # Voids 3 Dressing: dry Wound: clean Cardiovascular: RSR Respiratory: clear Abdomen: soft, non-tender, present bowel sounds Extremities: no edema, no tenderness, no cyanosis Laboratory Tests Test 04/18/20 05:05 White Blood Count 9.5 K/UL (4.8-10.8) Red Blood Count 3.59 M/UL (4.20-5.40) L Hemoglobin 11.1 G/DL (12.0-16.0) L Hematocrit 31.9 % (37.0-47.0) L Mean Corpuscular Volume 89 FL (80-99) Mean Corpuscular Hemoglobin 31.0 PG (27.0-31.0) Mean Corpuscular Hemoglobin Concent 34.8 G/DL (32.0-36.0) Red Cell Distribution Width 13.2 % (11.6-14.8) Platelet Count 206 K/UL (150-450) Mean Platelet Volume 5.5 FL (6.5-10.1) L Neutrophils (%) (Auto) 73.8 % (45.0-75.0) Lymphocytes (%) (Auto) 19.6 % (20.0-45.0) L Monocytes (%) (Auto) 5.7 % (1.0-10.0) Eosinophils (%) (Auto) 0.2 % (0.0-3.0) Basophils (%) (Auto) 0.7 % (0.0-2.0) Sodium Level 139 MMOL/L (136-145) Potassium Level 3.5 MMOL/L (3.5-5.1) Chloride Level 104 MMOL/L (98-107) Carbon Dioxide Level 30 MMOL/L (21-32) Anion Gap 5 mmol/L (5-15) Blood Urea Nitrogen 10 mg/dL (7-18) Creatinine 1.1 MG/DL (0.55-1.30) Estimat Glomerular Filtration Rate 52.8 mL/min (>60) Glucose Level 116 MG/DL (74-106) H Calcium Level 7.8 MG/DL (8.5-10.1) L Plan Problems: (1) Appendicitis Assessment & Plan: 49F acute appy afebrile, HD stable leukocytosis CT with acute appy exam with RLQ tenderness npo iv fluids iv abx consent to or for lap vs open appy s/p lap appy rx written d/c plan tomorrow min pain meds ABDOMEN: Liver: Unremarkable. Gallbladder and bile ducts: Unremarkable. No calcified stones. No ductal dilation. Pancreas: Unremarkable. No ductal dilation. Spleen: Unremarkable. No splenomegaly. Adrenals: Unremarkable. No mass. 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 Stomach and bowel: Unremarkable. No obstruction. No mucosal thickening. PELVIS: Appendix: Dilated, fluid-filled appendix with intraluminal appendicoliths, appendiceal wall thickening and periappendiceal infiltrative changes. Findings are consistent with acute appendicitis. The appendix measures up to 12 mm in diameter. No loculated lorena- appendiceal fluid collection. No extraluminal gas. Bladder: Unremarkable. No stones. Reproductive: No adnexal lesions. ABDOMEN and PELVIS: Intraperitoneal space: No free air. No significant fluid collection. Bones/joints: No acute fracture. No dislocation. Soft tissues: Unremarkable. Vasculature: Unremarkable. No abdominal aortic aneurysm. Lymph nodes: Unremarkable. No enlarged lymph nodes. IMPRESSION: Acute appendicitis. No evidence of appendiceal perforation. (2) Abdominal pain (3) Asthma Spencer Nunez Apr 18, 2020 18:17
[2020-04-18] MEDS ORDERED: Tylenol #3 tab (300mg/30mg) ORAL PRN (18:30)
[2020-04-18] MEDS ORDERED: Milk of Magnesia 30ml Ud ORAL SCH (18:30)
[2020-04-18] MEDS ORDERED: Milk of Magnesia 30ml Ud ORAL PRN (18:30)
[2020-04-18 20:00] VITALS: BP 132/70
[2020-04-19] VITALS: BP 129/71
[2020-04-19] MEDS: D5NS 1,000 ML IV SCH ×2 (00:36→10:42)
[2020-04-19] MEDS: Albuterol ud Inhalation HHN SCH ×3 (01:07→13:00)
[2020-04-19 04:00] VITALS: BP 122/73
[2020-04-19] MEDS: Piperacillin/Tazobactam 3.375 GM in NS 110 ML IVPB SCH ×2 (05:30→14:00)
--- NOTE | 2020-04-19 07:32 | General Progress Note ---
Subjective ROS Limited/Unobtainable: No Constitutional: Reports: malaise, weakness HEENT: Reports: no symptoms Cardiovascular: Reports: no symptoms Respiratory: Reports: no symptoms Gastrointestinal/Abdominal: Reports: constipated, nausea, poor appetite, vomiting Genitourinary: Reports: no symptoms Neurologic/Psychiatric: Reports: no symptoms Endocrine: Reports: no symptoms Hematologic/Lymphatic: Reports: no symptoms Allergies: Uncoded Allergies: contrast dye (Allergy, Unknown, 06/22/16) opiates (Allergy, Unknown, 06/22/16) All Systems: reviewed and negative except above Subjective still wit headaches. +nausea and vomiting. +constipation. no bms yet. Objective Last 24 Hour Vital Signs Date Time Temp Pulse Resp B/P (MAP) Pulse Ox O2 Delivery O2 Flow Rate FiO2 04/19/20 04:00 98.2 85 16 122/73 (89) 95 04/19/20 01:07 86 18 100 Room Air 21 84 16 98 04/19/20 00:00 98.6 87 16 129/71 (90) 96 04/18/20 21:00 Room Air 04/18/20 20:00 99.0 89 16 132/70 (90) 96 04/18/20 19:35 92 18 100 Room Air 21 88 18 99 04/18/20 16:00 98.8 86 16 121/72 (88) 98 04/18/20 13:53 100 18 100 Room Air 21 100 18 97 04/18/20 12:00 99.1 85 16 130/78 (95) 96 04/18/20 09:00 Room Air 04/18/20 08:01 103 18 100 Room Air 21 99 18 98 04/18/20 08:00 98.6 90 16 119/80 (93) 97 Intake and Output 04/18/20 04/19/20 19:00 07:00 Intake Total 1450 ml 1925 ml Output Total 25 ml 10 ml Balance 1425 ml 1915 ml Intake Oral 1000 ml 1400 ml IV Total 450 ml 525 ml Output Emesis 25 ml 10 ml # Voids 6 3 Height (Feet): 5 Height (Inches): 5.00 Weight (Pounds): 198 General Appearance: WD/WN, alert Neck: supple Cardiovascular: normal rate Respiratory/Chest: lungs clear Abdomen: normal bowel sounds, non tender, soft, no organomegaly Neurologic: nursing secretary II-XII grossly normal, alert, oriented x 3, responsive Assessment/Plan Problem List: (1) Appendicitis ICD Codes: K37 - Unspecified appendicitis SNOMED: 09166875 (2) Abdominal pain ICD Codes: R10.9 - Unspecified abdominal pain SNOMED: 61495814 (3) Asthma ICD Codes: J45.909 - Unspecified asthma, uncomplicated SNOMED: 119052556 (4) appendicitis Status: stable Assessment/Plan: cont current rx ivf iv abx repeat imitrex mobilize enema Negrito Martinez MD Apr 19, 2020 07:32
[2020-04-19 07:46] VITALS: BP 123/78
[2020-04-19] MEDS ORDERED: SUMAtriptan 6mg/0.5ml Inj SUBQ ONE (09:00)
[2020-04-19] MEDS ORDERED: D5NS 1000ml IV ONE ×2 (09:57→17:19)
[2020-04-19] MEDS ORDERED: NS 275ml ONE (09:57)
[2020-04-19] MEDS ORDERED: Tubing IV Secondary IV ONE (09:57)
[2020-04-19] MEDS: Docusate 100mg cap ORAL SCH (10:42)
[2020-04-19] MEDS ORDERED: Fleet's Enema 133ml RECTAL SCH (10:45)
[2020-04-19 12:00] VITALS: BP 128/79
[2020-04-19] MEDS: Milk of Magnesia 30ml Ud ORAL PRN (12:53)
[2020-04-19 16:00] VITALS: BP 121/74
[2020-04-19] MEDS ORDERED: ACETAMINOPHEN-1 EAC1 ORAL (16:54)
[2020-04-19] MEDS ORDERED: COLACE100 MG ORAL (16:55)
--- NOTE | 2020-04-20 13:18 | Discharge Summary ---
Discharge Summary Discharge Summary _ DATE OF ADMISSION: 04/17/2020 DATE OF DISCHARGE: 04/19/2020 DISCHARGED BY: Dr. 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 Symptoms worsened , and patient came for evaluation Patient reported abdominal distention , pressure and pain. Patient had bowel movement earlier in the morning. She reported nonbloody nausea. She denied fever and chills. She denied drug use or alcohol abuse . No flank pain . Upon evaluation vital signs were stable. Laboratory work-up revealed leukocytosis with WBC 13.8, stable hemoglobin, hematocrit and platelet count. Stable electrolytes and renal parameters. Glucose 134. Stable LFT and lipase. Urinalysis revealed no evidence of urinary tract infection. Abdominal x-ray revealed no acute process. CT scan of the abdomen and pelvis without contrast revealed acute appendicitis without evidence of appendiceal perforation. Status post left nephrectomy. Rapid COVID-19 was negative. Surgery consult was requested . Patient received analgesic, antiemetic , empiric antibiotic, IV hydration and admitted to medical surgical floor for further management. CONSULTANTS: surgery Dr. Nunez [facility]: Patient admitted to medical surgical floor . Patient undergone laparoscopic appendectomy with laparoscopic lysis of adhesion due to extensive intra-abdominal adhesions. Patient tolerated surgery well. Postoperatively pain management was addressed as needed, Empiric antibiotic continued. Patient slowly started on diet and was advanced as tolerated . Antiemetic provided as needed. Bowel regimen instituted. Ambulation was encouraged. Pulse oximetry remained stable on room air. Nebulizing treatment with albuterol provided . Leukocytosis resolved ; no fevers. Patient complained of the headache and emesis, which was secondary to headache/ Patient was also constipated . Imitrex for pain control provided. Bowel regimen instituted Patient was mobilized. Headache resolved. Additionally to prior bowel regimen, enema was provided. Patient finally had bowel movement . Patient clinically stabilized: tolerated diet, remained comfortable. Patient was ready for discharge home. FINAL DIAGNOSES: Acute appendicitis with extensive intra-abdominal adhesions Status post laparoscopic appendectomy with laparoscopic lysis of adhesion Asthma Abdominal pain Headache DISCHARGE MEDICATIONS: See Medication Reconciliation list. DISCHARGE INSTRUCTIONS: Patient was discharged home. Follow-up with a primary care provider in 1 week. Follow-up with the surgeon as advised. I have been assigned to dictate discharge summary for this account. I was not involved in the patient's management. Roxana Ho NP Apr 20, 2020 13:18
== END 2020-04-19 17:20 | disposition home or self-care (01) | DRG 337 ==
LOC: EMR 04:04 → 3E 07:57 → EMR 11:40 → EDBEDREQ 15:49
PROC: 0DNW4ZZ Release Peritoneum, Percutaneous Endoscopic Approach (ICD-10-PCS; 2020-04-17)
PROC: 0DTJ4ZZ Resection of Appendix, Percutaneous Endoscopic Approach (ICD-10-PCS; principal; 2020-04-17 12:30)
DX: K35.80 Unspecified acute appendicitis (principal); K66.0 Peritoneal adhesions (postprocedural) (postinfection); J45.909 Unspecified asthma, uncomplicated; Z88.6 Allergy status to analgesic agent; Z91.041 Radiographic dye allergy status; Z90.5 Acquired absence of kidney; R51.9 Headache, unspecified
CPT/HCPCS: 36415; 74018; 74176; 80048; 80053; 81003; 81025; 83690; 85025; 85730; 86850; 86900; 86901; 94003; 94150; 94640; 96361; 96365; 96375; 96376; 99285; J2250; J2405; J2710; J2765; J7030; U0002